=== PATIENT | male | born 2000 | race Caucasian/White ===

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

== ENCOUNTER 2019-08-13 22:59 | Emergency (ER) | payer OTHER ==
[2019-08-13] MEDS ORDERED: LIDOCAINE 1%/EPINEPHRINE INJ 20 ML VIAL INJ ONE (23:51)
[2019-08-13] MEDS ORDERED: OXYCODONE-ACETAMINOPHEN 5-325 MG TABLET PO ONE (23:51)
[2019-08-13] MEDS ORDERED: ONDANSETRON 4 MG TAB.RAPDIS PO ONE (23:51)
[2019-08-13] MEDS ORDERED: DIPH/PERTUSS(ACELL)/TETANUS VAC/PF 0.5 ML SYR (>=10YO) IM ONE (23:52)
--- NOTE | 2019-08-13 23:53 | ER Document Report ---
ED Wound - General Chief Complaint: Laceration Stated Complaint: LEG WOUND Time Seen by Provider: 08/13/19 23:42 Notes: Patient is a 19-year-old male that comes emergency department for chief complaint of wound to his right lower extremity. He states that he had just clocked out of work when he suddenly tripped and fell, he states he think he struck his leg on a metal slab that was on a wall, this caused a laceration which was bleeding heavily. He denies any other injuries from the fall including upper extremity pain, head injury, back injury, or any other complaints. He is not up-to-date on his tetanus within 5 years reportedly. He takes no daily medications, denies any past medical history. TRAVEL OUTSIDE OF THE [place] IN LAST 30 DAYS: No - Related Data Allergies/Adverse Reactions: No Known Allergies Allergy (Unverified 06/15/16 00:41) Past Medical History - General Information source: Patient - Social History Smoking Status: Never Smoker Frequency of alcohol use: None Drug Abuse: None Lives with: Family Family History: Reviewed & Not Pertinent Patient has suicidal ideation: No Patient has homicidal ideation: No - Medical History Medical History: Negative Renal/ Medical History: Denies: Hx Peritoneal Dialysis Surgical Hx: Negative - Immunizations Immunizations up to date: No Hx Diphtheria, Pertussis, Tetanus Vaccination: Yes Review of Systems - Review of Systems Constitutional: No symptoms reported EENT: No symptoms reported Cardiovascular: No symptoms reported Respiratory: No symptoms reported Gastrointestinal: No symptoms reported Genitourinary: No symptoms reported Male Genitourinary: No symptoms reported Musculoskeletal: See HPI Skin: See HPI Hematologic/Lymphatic: No symptoms reported Neurological/Psychological: No symptoms reported Physical Exam - Vital signs Vitals: Temp Pulse Resp BP Pulse Ox 98.3 F 81 16 146/82 H 97 08/13/19 23:06 08/13/19 23:06 08/13/19 23:06 08/13/19 23:06 08/13/19 23:06 - Notes Notes: GENERAL: Alert, interacts well. No acute distress. HEAD: Normocephalic, atraumatic. EYES: Pupils equal, round, and reactive to light. Extraocular movements intact. ENT: Oral mucosa moist, tongue midline. Oropharynx unremarkable. Airway patent. LUNGS: Clear to auscultation bilaterally, no wheezes, rales, or rhonchi. No respiratory distress. Non-tender chest wall. HEART: Regular rate and rhythm. No murmur ABDOMEN: Soft, non-tender. Non-distended. EXTREMITIES: Over the right anterior distal tibia there is a vertical 3 cm partial-thickness wound with some surrounding tenderness but no significant swelling. This is just medial to the tibial bone. There is some tenderness over the tibial bone itself. Normal dorsalis pedis, normal range of motion of the ankle, knee, normal distal neurovascular exam, normal extremities otherwise. BACK: no cervical, thoracic, lumbar midline tenderness. No signs of trauma. No saddle anesthesia, normal distal neurovascular exam. Moves all extremities in full range of motion. NEUROLOGICAL: Alert and oriented x3. Normal speech. Cranial nerves II through XII grossly intact. Strength 5/5 in all extremities. PSYCH: Normal affect, normal mood. SKIN: Warm, dry, normal turgor. No rashes or lesions noted. Course - Re-evaluation Re-evalutation: X-ray negative for any acute findings, patient has a normal neurovascular exam, patient appears to have some soft tissue injury surrounding what appears to be a partial-thickness laceration. No concern for underlying concerning injury, no evidence of compartment syndrome on exam. Wound was cleaned thoroughly, repaired, discussed care, follow-up, return precautions. Patient states appreciation and agreement. Stable and well-appearing at time of discharge. - Vital Signs Vital signs: Temp Pulse Resp BP Pulse Ox 98.2 F 80 16 138/80 H 97 08/14/19 01:22 08/14/19 01:22 08/14/19 01:22 08/14/19 01:22 08/14/19 01:22 Procedures - Laceration/Wound Repair Right distal tibia Wound length (cm): 3 Wound's Depth, Shape: Irregular Laceration pre-procedure: Sterile PPE donned, Sterile drapes applied, Shur-Clens applied Anesthetic type: 1% Lidocaine w/epi Volume Anesthetic (mLs): 5 Wound explored: Clean, No foreign body removed Irrigated w/ Saline (mLs): 80 Wound Repaired With: Sutures Suture Size/Type: 3:0, Ethilon Number of Sutures: 6 Layer Closure?: No Post-procedure wound care: Sterile dressing applied Post-procedure NV exam normal: Yes Complications: No Discharge - Discharge Clinical Impression: Laceration of right lower leg Qualifiers: Encounter type: initial encounter Qualified Code(s): S81.811A - Laceration without foreign body, right lower leg, initial encounter Condition: Stable Disposition: HOME, SELF-CARE Instructions: Tetanus Immunization Given ([facility]) Additional Instructions: The sutures need to be removed in 7 days at a medical facility. Keep clean, clean with soap and water, dab dry, you can keep a thin film of topical antibiotic over the area. Avoid soaking or scrubbing the area. I recommend being very careful and elevating when possible over the first 2 days especially. Return for any concerning symptoms including developing swelling, pain, spreading redness, discolored drainage, fever, or any other concerning symptoms. Forms: Return to Work
--- NOTE | 2019-08-14 01:21 | RADIOLOGY REPORT (SQ) ---
EXAM DESCRIPTION: XR TIBIA FIBULA 2 VIEWS COMPLETED DATE/TME: 08/13/2019 23:50 CLINICAL HISTORY: 19 years, Male, fall, wound, pain COMPARISON: None. NUMBER OF VIEWS: 2 TECHNIQUE: 2 views of the right tibia fibula LIMITATIONS: None. FINDINGS: Negative for fracture or dislocation. Soft tissues are unremarkable IMPRESSION: Negative exam copyright 2011 [employer]- All Rights Reserved
[2019-08-14 01:24] VITALS: BP 138/80
== END 2019-08-14 01:22 | disposition home or self-care (01) ==
LOC: ER 22:59
DX: S81.811A Laceration without foreign body, right lower leg, initial encounter (principal); W19.XXXA Unspecified fall, initial encounter; Z23 Encounter for immunization
CPT/HCPCS: 99283; 73590; 90715; 12002; S0119; J3490